=== PATIENT | male | born 2005 | race Caucasian/White ===

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

== ENCOUNTER → 2023-11-26 13:46 | Outpatient (CLI) | payer OTHER, SELFPAY | PROVIDERS: Family Provider Pediatrics; PCP Pediatrics; Visit Provider Physician Assistant Surgical | DX: L60.0 Ingrowing nail (principal) | CPT/HCPCS: 87070; 87077; 87147; 87186; 87205 ==